=== PATIENT | female | born 1940 | race Caucasian/White ===

== ENCOUNTER 2019-01-04 14:41 | Outpatient (CLI) | payer MEDICARE, BC ==
[~2019-01-04] VITALS: Ht 157.5 cm; Wt 47.3 kg
[2019-01-04 15:44] VITALS: BP 122/62; Ht 157.5 cm; Wt 47.3 kg
== END 2019-01-04 16:01 | disposition home or self-care (01) ==
LOC: D.OPS 14:41
PROVIDERS: ATTEND Family Medicine
DX: M18.0 Bilateral primary osteoarthritis of first carpometacarpal joints (principal)